=== PATIENT | female | born 1945 | race Caucasian/White ===

== ENCOUNTER 2020-07-17 14:01 | Inpatient (IN) | payer OTHER ==
[~2020-07-17] VITALS: Ht 167.6 cm; Wt 40.8 kg
[~2020-07-17 14:01] MED LIST: ALENDRONATE SOD70 MG PO; ASPIRIN EC81 MG PO; ATORVASTATIN CA20 MG PO; BUSPIRONE HCL7.5 MG PO; CARVEDILOL6.25 MG PO; CLONIDINE1 EACH TD; CLOPIDOGREL75 MG PO; COZAAR 50MG TAB50 MG PO; FLUTICASONE PRO16 GM; GLIMEPIRIDE1 MG PO; ISOSORBIDE MON120 MG PO; K-DUR TAB 20 M20 MEQ PO; LEVOTHYROXINE50 MCG PO; LOSARTAN POTASS50 MG PO; MACROBID 100 M100 MG PO; NAMENDA 5 MG TAB5 MG PO; RANOLAZINE ER500 MG PO; VITAMIN D21250 MCG PO
[2020-07-18 02:45] LABS: HEMOGLOBIN 11.1 gm/dl (12.3-15.3); RED BLOOD COUNT 3.45 M/UL (4.00-5.10); WHITE BLOOD COUNT 6.3 K/UL (4.5-11.0)
[2020-07-18 04:47] LABS: BUN/CREATININE RATIO 23 (0-10)
[2020-07-19 02:21] LABS: HEMOGLOBIN 9.6 gm/dl (12.3-15.3); WHITE BLOOD COUNT 5.7 K/UL (4.5-11.0)
[2020-07-19 02:24] LABS: RED BLOOD COUNT 2.88 M/UL (4.00-5.10)
[2020-07-19 02:43] LABS: BUN/CREATININE RATIO 42 (0-10)
[2020-07-20 05:41] LABS: RED BLOOD COUNT 2.74 M/UL (4.00-5.10); WHITE BLOOD COUNT 5.5 K/UL (4.5-11.0)
[2020-07-20 06:19] LABS: BUN/CREATININE RATIO 23 (0-10)
[2020-07-21 03:52] LABS: HEMOGLOBIN 9.4 gm/dl (12.3-15.3); RED BLOOD COUNT 2.85 M/UL (4.00-5.10); WHITE BLOOD COUNT 5.3 K/UL (4.5-11.0)
[2020-07-21 04:15] LABS: BUN/CREATININE RATIO 21 (0-10)
[2020-07-21] MEDS ORDERED: ATORVASTATIN CA20 MG PO (12:47)
[2020-07-21] MEDS ORDERED: MEGACE 400400 MG/10 PO (12:50)
== END 2020-07-21 14:57 | disposition home health service (06) | DRG 280 ==
LOC: M/S 20:11 → PROG CARE 20:11 → M/S 07-19 10:33
PROVIDERS: Internal Medicine; ADMIT Internal Medicine
DX: I25.10 Atherosclerotic heart disease of native coronary artery without angina pectoris (principal); I21.A1 Myocardial infarction type 2; E43 Unspecified severe protein-calorie malnutrition; I50.32 Chronic diastolic (congestive) heart failure; Z68.1 Body mass index [BMI] 19.9 or less, adult; F03.90 Unspecified dementia, unspecified severity, without behavioral disturbance, psychotic disturbance, mood disturbance, and anxiety; E11.9 Type 2 diabetes mellitus without complications; I11.0 Hypertensive heart disease with heart failure; Z95.1 Presence of aortocoronary bypass graft; Z98.61 Coronary angioplasty status; E78.5 Hyperlipidemia, unspecified; G47.33 Obstructive sleep apnea (adult) (pediatric); M81.0 Age-related osteoporosis without current pathological fracture; E55.9 Vitamin D deficiency, unspecified; Z79.899 Other long term (current) drug therapy; E89.0 Postprocedural hypothyroidism; K58.9 Irritable bowel syndrome, unspecified; I45.10 Unspecified right bundle-branch block; Z90.49 Acquired absence of other specified parts of digestive tract; Z98.42 Cataract extraction status, left eye; Z98.41 Cataract extraction status, right eye; Z96.1 Presence of intraocular lens; Z82.49 Family history of ischemic heart disease and other diseases of the circulatory system; Z79.82 Long term (current) use of aspirin; Z80.3 Family history of malignant neoplasm of breast; Z80.1 Family history of malignant neoplasm of trachea, bronchus and lung
CPT/HCPCS: 36415; 71045; 80048; 80053; 82550; 82553; 82962; 83540; 83550; 84484; 85025; 85610; 85730; 92526; 92610; 93005; J1644; J7030